=== PATIENT | female | born 1955 | race Caucasian/White ===

== ENCOUNTER → 2016-09-29 | Outpatient (CLI) | payer BC, OTHER ==
[~2016-09-29] MED LIST: ACET-1256 PO; ALBINS INH; ALBU18002 INH; ATOR-24 PO; CLCC1250 PO; CLR10 PO; CSPOPS OPL; DXY50 PO; ERGO1CAP35 PO; MULT-506 PO; TELM80TA PO; TRVOPS OPL
== END | disposition home or self-care (01) ==
LOC: C.PAPS 14:52
PROVIDERS: ATTEND Obstetrics & Gynecology
DX: Z01.419 Encounter for gynecological examination (general) (routine) without abnormal findings (principal)

== ENCOUNTER → 2017-02-01 | Outpatient (CLI) | payer OTHER ==
[2017-02-01 13:11] LABS: ALT/SGPT 54 U/L (12-78); AST/SGOT 31 U/L (15-37); BLOOD UREA NITROGEN 27 mg/dl (7-18); BUN/CREATININE RATIO 37.5 (10-20); CARBON DIOXIDE 27 mmol/L (21-32); CHLORIDE 105 mmol/L (98-107); CHOLESTEROL 207 mg/dl (0-200); CREATININE 0.71 mg/dl (0.60-1.20); GLUCOSE 97 mg/dl (70-99); POTASSIUM 4.5 mmol/L (3.5-5.1); SODIUM 141 mmol/L (136-145); TRIGLYCERIDES 213 mg/dl (0-150); VERY LOW DENSITY LIPOPROT CALC 43 mg/dl
[2017-02-01 13:14] LABS: CALCIUM 8.9 mg/dl (8.5-10.1)
[2017-02-01 13:21] LABS: CHOLESTEROL/HDL RATIO 3.8; HDL CHOLESTEROL 55 mg/dl; LDL CHOLESTEROL CALCULATED 109 mg/dl
== END | disposition home or self-care (01) ==
LOC: C.LAB 11:38
PROVIDERS: ATTEND Internal Medicine
DX: E78.5 Hyperlipidemia, unspecified (principal); R73.9 Hyperglycemia, unspecified

== ENCOUNTER → 2017-02-17 | Outpatient (CLI) | payer OTHER ==
--- NOTE | 2017-02-17 09:33 | DIAGNOSTIC IMAGING REPORT ---
LEFT HAND 3 VIEWS CLINICAL HISTORY: Polyarthropathy. FINDINGS: 3 views of left hand are obtained. No prior studies are available for comparison at the time of dictation. The skeletal structures are well mineralized for age. No fracture is seen. There is mild degenerative narrowing at the radiocarpal articulation. Minimal osteoarthritic change is seen at the first carpometacarpal joint, the first metacarpophalangeal joint, and the distal interphalangeal joints. No erosive change is seen. The overlying soft tissues are within normal limits. IMPRESSION: 1. No acute bony amount is seen in the left hand. 2. Mild osteoarthritic changes as above. Electronically signed by: Jf Schneider M.D. 02/17/2017 9:31 AM Dictated Date/Time: 02/17/2017 9:30 AM
--- NOTE | 2017-02-17 09:38 | DIAGNOSTIC IMAGING REPORT ---
RIGHT HAND MIN 3 VIEWS ROUTINE CLINICAL HISTORY: Inflammatory polyarthropathy. COMPARISON: None FINDINGS: Alignment of the right hand is anatomic. No fracture or suspicious lesion is identified. No erosions are identified. There is mild joint space narrowing and osteophytosis of multiple interphalangeal joints within the right hand suggestive of mild osteoarthritis. Carpal bones are intact. IMPRESSION: 1. 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 2. No radiographic evidence of an erosive/inflammatory arthropathy. Electronically signed by: Jorge Tracy M.D. 02/17/2017 9:37 AM Dictated Date/Time: 02/17/2017 9:36 AM
--- NOTE | 2017-02-17 09:38 | DIAGNOSTIC IMAGING REPORT ---
RIGHT ANKLE 3 VIEWS CLINICAL HISTORY: Right ankle pain. FINDINGS: 3 views of the right ankle are obtained. No prior studies are available for comparison at the time of dictation. The skeletal structures are well mineralized. No fracture is seen. The ankle mortise is intact. Enthesophytes arises from the inferior aspect of the medial malleolus. Mild degenerative spurring is seen along the dorsal aspect of the tarsal bones. A large plantar calcaneal enthesophyte is observed. No erosive change is identified. No joint effusion is seen. Soft tissue swelling is present around the ankle. IMPRESSION: 1. Soft tissue swelling with no acute bony abnormality identified. 2. Mild degenerative change and large plantar heel spur as above. Electronically signed by: Jf Schneider M.D. 02/17/2017 9:36 AM Dictated Date/Time: 02/17/2017 9:35 AM
--- NOTE | 2017-02-17 09:41 | DIAGNOSTIC IMAGING REPORT ---
RIGHT FOOT 3 VIEWS CLINICAL HISTORY: Polyarthropathy. Right foot pain. FINDINGS: 3 views of the right foot are obtained. No prior studies are available for comparison at the time of dictation. The skeletal structures are well mineralized for age. No fracture is seen. There is minimal arthritic change at the first metatarsophalangeal joint. The joint spaces of the foot are otherwise maintained. A tiny os naviculari is incidentally noted. No erosive change is present. A large plantar calcaneal enthesophyte is observed. The overlying soft tissues are within normal limits. IMPRESSION: Mild degenerative change and plantar heel spur as above. No acute bony abnormality is seen. Electronically signed by: Jf Schneider M.D. 02/17/2017 9:39 AM Dictated Date/Time: 02/17/2017 9:38 AM
[2017-02-17 10:14] LABS: RHEUMATOID FACTOR < 10.0 U/mL (0-15); TOTAL IRON BINDING CAPACITY 158 mcg/dl (250-450)
[2017-02-22 12:22] LABS: ANTI-CENTROMERE AB <1.0 NEG AI (<1.0 NEG); ANTI-SS-A <1.0 NEG AI (<1.0 NEG); ANTI-SS-B <1.0 NEG AI (<1.0 NEG); DNA ds CRITHIDIA NEGATIVE (NEGATIVE); HLA-B27** TC 528X NEGATIVE (NEGATIVE); PARVOVIRUS IgG INDEX 5.8 (<0.9); PARVOVIRUS IgM INDEX 0.2 (<0.9); Sm Antibody <1.0 NEG AI (<1.0 NEG)
== END | disposition home or self-care (01) ==
LOC: C.RAD1850 08:34
PROVIDERS: ATTEND Internal Medicine Rheumatology
DX: M06.4 Inflammatory polyarthropathy (principal); M25.571 Pain in right ankle and joints of right foot; M79.9 Soft tissue disorder, unspecified; M77.31 Calcaneal spur, right foot

== ENCOUNTER → 2017-03-24 | Outpatient (CLI) | payer OTHER ==
[2017-04-01 15:26] LABS: O&P SOURCE OTHER-STOOL
== END | disposition home or self-care (01) ==
LOC: C.LAB 07:14
PROVIDERS: ATTEND Internal Medicine
DX: R19.7 Diarrhea, unspecified (principal)

== ENCOUNTER → 2017-05-06 | Outpatient (CLI) | payer OTHER | END | disposition home or self-care (01) | LOC: C.LABSPEC 09:14 | PROVIDERS: ATTEND Physician Assistant | DX: R19.7 Diarrhea, unspecified (principal) ==

== ENCOUNTER → 2017-05-13 | Day surgery (SDC) | payer OTHER ==
[2017-05-11 15:02] VITALS: Ht 165.1 cm; Wt 90.9 kg
[~2017-05-13] VITALS: Ht 165.1 cm; Wt 90.9 kg
[~2017-05-13] MED LIST changes: +LIDOCAINE HCL 2% 2 ML VIAL (20MG/ML) ONE; +MIDAZOLAM HCL 1 MG/ML 2ML VIAL ONE; +PROPOFOL IV EMULSION 10 MG/ML 20 ML VIAL IV ONE; +SODIUM CHLORIDE 0.9% 500ML 500 ML IV ONE
--- NOTE | 2017-05-13 12:35 | Endo History and Physical ---
History & Physical Date of Service: May 13, 2017. Chief Complaint: DIARRHEA Referring Physician: DR MARKS History of Present Illness 61 yo CF who presents for colonoscopy secondary to diarrhea. Past Surgical History Hx Cardiac Surgery: No Hx Internal Defibrillator: No Hx Pacemaker: No Hx Abdominal Surgery: No Hx of Implantable Prosthesis: No Hx Post-Op Nausea and Vomiting: No Hx Cancer Surgery: No Hx Thoracic Surgery: No Hx Orthopedic: Yes (benign tumor removed from left hand) Hx Urinary Tract Surgery: No Family History None Social History Smoking Status: Never Smoker Hx Substance Use: No Hx Alcohol Use: Yes (wine) Allergies Coded Allergies: Cat Dander (Verified Allergy, Intermediate, ITCHY EYES, RUNNY NOSE, SNEEZING, 05/13/17) Dog Dander (Verified Allergy, Intermediate, ITCHY EYES, RUNNY NOSE, SNEEZING, 05/13/17) Pollen Extract (Verified Allergy, Intermediate, ITCHY EYES, RUNNY NOSE, SNEEZING, 05/13/17) Uncoded Allergies: ALL STERIODS (Allergy, Severe, "CAUSES FLUID TO BUILD BEHIND EYES", 04/04/16 ) EYE DROPS (Allergy, Unknown, UNKNOWN, 04/04/16) EYE DROPS WERE FOR GLAUCOMA Current Medications Reported Home Medications Medications Dose Route/Sig Max Daily Dose Days Date Category Proair Respiclick (Albuterol Sulfate) 108 Mcg/Act Aer 1 Puff INH QID PRN 05/11/17 Reported Albuterol Sulfate (Albuterol Sulf) 2.5 Mg/3 Ml Nebu 1 Dose INH QID PRN 05/11/17 Reported Tylenol (Acetaminophen) 500 Mg Tab 1,000 Mg PO QID 04/04/16 Reported Claritin (Loratadine) 10 Mg Tab 10 Mg PO QAM 04/04/16 Reported Multivitamin (Multivitamins) Tab 1 Tab PO QAM 10/07/11 Reported Os-Ermias 500 * (Calcium Carbonate) 500 Mg Tab 500 Mg PO QAM 10/07/11 Reported Cosopt Oph * (Dorzolamide/Timolol) Soln 1 Drop OPL BID 10/07/11 Reported Travatan Oph Soln 0.004% * (Travoprost) 37 Drops/2.5 Ml Soln 1 Drop OPL HS 10/07/11 Reported Lipitor (Atorvastatin Calcium) 40 Mg Tab 40 Mg PO HS 10/07/11 Reported Vibramycin * (Doxycycline Hyclate) 50 Mg Cap 50 Mg PO QAM 10/07/11 Reported Vitamin D Cap (Ergocalciferol) 50,000 Interunit Cap 1 Tab PO Q 2 WEEKS 10/07/11 Reported Micardis (Telmisartan) 80 Mg Tab 80 Mg PO QAM 10/07/11 Reported Vital Signs Weight (Kilograms): 90.91 Height (Feet): 5 Height (Inches): 5 Physical Exam General Appearance: WD/WN, no apparent distress Respiratory/Chest: Auscultation: breath sounds normal Cardiovascular: Heart Auscultation: RRR Abdomen: Bowel Sounds: normal Inspection & Palpation: soft, non-distended, no tenderness, guarding & rebound Assessment and Plan Assessment: 61 yo CF who presents for colonoscopy secondary to diarrhea. Plan: Proceed with colonoscopy.
--- NOTE | 2017-05-13 13:17 | Discharge Instructions ---
Endoscopy Patient Instructions Date / Procedure(s) Performed May 13, 2017. Colonoscopy Allergy Information Coded Allergies: Cat Dander (Verified Allergy, Intermediate, ITCHY EYES, RUNNY NOSE, SNEEZING, 05/13/17) Dog Dander (Verified Allergy, Intermediate, ITCHY EYES, RUNNY NOSE, SNEEZING, 05/13/17) Pollen Extract (Verified Allergy, Intermediate, ITCHY EYES, RUNNY NOSE, SNEEZING, 05/13/17) Uncoded Allergies: ALL STERIODS (Allergy, Severe, "CAUSES FLUID TO BUILD BEHIND EYES", 04/04/16 ) EYE DROPS (Allergy, Unknown, UNKNOWN, 04/04/16) EYE DROPS WERE FOR GLAUCOMA Discharge Date / Findings May 13, 2017. Diverticulosis Internal hemorrhoids Random colon biopsies Stool studies collected Medication Instructions OK to resume all medications today as prescribed Reported Home Medications Medications Dose Route/Sig Max Daily Dose Days Date Category Proair Respiclick (Albuterol Sulfate) 108 Mcg/Act Aer 1 Puff INH QID PRN 05/11/17 Reported Albuterol Sulfate (Albuterol Sulf) 2.5 Mg/3 Ml Nebu 1 Dose INH QID PRN 05/11/17 Reported Tylenol (Acetaminophen) 500 Mg Tab 1,000 Mg PO QID 04/04/16 Reported Claritin (Loratadine) 10 Mg Tab 10 Mg PO QAM 04/04/16 Reported Multivitamin (Multivitamins) Tab 1 Tab PO QAM 10/07/11 Reported Os-Ermias 500 * (Calcium Carbonate) 500 Mg Tab 500 Mg PO QAM 10/07/11 Reported Cosopt Oph * (Dorzolamide/Timolol) Soln 1 Drop OPL BID 10/07/11 Reported Travatan Oph Soln 0.004% * (Travoprost) 37 Drops/2.5 Ml Soln 1 Drop OPL HS 10/07/11 Reported Lipitor (Atorvastatin Calcium) 40 Mg Tab 40 Mg PO HS 10/07/11 Reported Vibramycin * (Doxycycline Hyclate) 50 Mg Cap 50 Mg PO QAM 10/07/11 Reported Vitamin D Cap (Ergocalciferol) 50,000 Interunit Cap 1 Tab PO Q 2 WEEKS 10/07/11 Reported Micardis (Telmisartan) 80 Mg Tab 80 Mg PO QAM 10/07/11 Reported Provider Instructions Activity Restrictions - No exercising or heavy lifting for 24 hours. - Do not drink alcohol the day of the procedure. - Do not drive a car or operate machinery until the day after the procedure. - Do not make any important decisions or sign important papers in 24 hours after the procedure. Following Day: - Return to full activity which may include returning to work/school. Diet Start your diet with liquids and light foods (jello, soup, juice, toast). Then eat your usual diet if not nauseated. Treatment For Common After Affects For mild abdominal pain, bloating, or excessive gas: - Rest - Eat lightly - Lie on right side Follow-Up Information Follow-up with DR MARKS as scheduled Anesthesia Information What You Should Know You have had a procedure that required some medicine to reduce anxiety and discomfort. This treatment is called moderate sedation. After receiving the treatment, you may be sleepy, but you will be able to breathe on your own. The effects of the treatment may last for several hours. Follow these instructions along with Activity/Diet recommendations noted above: * Do NOT do anything where dizziness or clumsiness would be dangerous. * Rest quietly at home today, then you can be up and about tomorrow. * Have a responsible person stay with you the rest of today. * You may have had an I.V. today. If so, you may take the dressing off later today. Recommendations Call your doctor if: * Trouble breathing * Continuous vomiting for more than 24 hours * Temperature above 101 degrees * Severe abdominal pain or bloating * Pain not relieved by pain medicine ordered * There is increased drainage or redness from any incision * A large amount of rectal bleeding greater than 2-3 tablespoons. (If you had a polyp/s removed or have hemorrhoids, a small amount of blood - from the rectum is to be expected.) * You have any unanswered questions or concerns. IN THE EVENT OF A SERIOUS EMERGENCY, GO TO THE NEAREST EMERGENCY ROOM Your discharge instructions were prepared by provider Jono Ventura. Patient Instructions Signature Page Malathi Neely Patient (or Guardian) Signature/Date: I have read and understand the instructions given to me by my caregivers. Caregiver/RN/Doctor Signature/Date: The above-named patient and/or guardian has received patient instructions on this date. + Original Patient Signature Page (only) stays with chart. Please make copy for patient.
--- NOTE | 2017-05-13 13:26 | GI REPORT ---
Procedure Date: 05/13/2017 12:30 PM THIS REPORT HAS BEEN AMENDED Addendum Number: 1 Addendum Date: 05/13/2017 5:04:34 PM Random colon biopsies and stool studies were collected during this exam. Await pathology results and stool studies. Procedure: Colonoscopy Indications: Chronic diarrhea Medicines: Monitored Anesthesia Care Complications: No immediate complications. Estimated Blood Loss: Estimated blood loss: none. Procedure: Pre-Anesthesia Assessment: - Prior to the procedure, a History and Physical was performed, and patient medications and allergies were reviewed. The patient's tolerance of previous anesthesia was also reviewed. The risks and benefits of the procedure and the sedation options and risks were discussed with the patient. All questions were answered, and informed consent was obtained. Prior Anticoagulants: The patient has taken no previous anticoagulant or antiplatelet agents. ASA Grade Assessment: II - A patient with mild systemic disease. After reviewing the risks and benefits, the patient was deemed in satisfactory condition to undergo the procedure. After I obtained informed consent, the scope was passed under direct vision. Throughout the procedure, the patient's blood pressure, pulse, and oxygen saturations were monitored continuously. The Scope was introduced through the anus and advanced to the terminal ileum. The colonoscopy was performed without difficulty. The patient tolerated the procedure well. The quality of the bowel preparation was good. The terminal ileum, the appendiceal orifice and the rectum were photographed. Findings: Multiple small-mouthed diverticula were found in the sigmoid colon. Non-bleeding internal hemorrhoids were found during retroflexion. The hemorrhoids were small. Impression: - Diverticulosis in the sigmoid colon. - Non-bleeding internal hemorrhoids. - No specimens collected. Recommendation: - Resume previous diet. - Continue present medications. - Repeat colonoscopy for surveillance based on pathology results. - Return to primary care physician as previously scheduled. Jono Mireya Ventura, 05/13/2017 1:26:10 PM This report has been signed electronically. Note Initiated On: 05/13/2017 12:30 PM I attest to the content of the Intraoperative Record and orders documented therein, exceptions below Jono MckoyStephanie Ventura, DO 05/13/2017 5:05:17 PM This report has been signed electronically.
--- NOTE | 2017-05-13 13:36 | Anesthesiology Progress Note ---
Anesthesia Post Op Note Date & Time May 13, 2017 at 13:36 Vital Signs Pain Intensity: 0 Vital Signs Past 12 Hours Date Time Temp Pulse Resp B/P (MAP) Pulse Ox O2 Delivery O2 Flow Rate FiO2 05/13/17 13:31 79 16 145/80 (101) 98 Room Air 05/13/17 13:16 93 16 121/64 (83) 97 Room Air 05/13/17 12:35 37.0 87 18 139/82 (101) 95 Room Air Notes Mental Status: alert / awake / arousable, participated in evaluation Pt Amnestic to Procedure: Yes Nausea / Vomiting: adequately controlled Pain: adequately controlled Airway Patency, RR, SpO2: stable & adequate BP & HR: stable & adequate Hydration State: stable & adequate Anesthetic Complications: no major complications apparent
[2017-05-13 13:46] VITALS: BP 137/93; PULSE 72; O2SAT 99
== END | disposition home or self-care (01) ==
LOC: C.GI 12:01
PROVIDERS: ATTEND Internal Medicine
DX: R19.7 Diarrhea, unspecified (principal); Z79.899 Other long term (current) drug therapy; K57.30 Diverticulosis of large intestine without perforation or abscess without bleeding; K64.8 Other hemorrhoids

== ENCOUNTER → 2017-08-26 | Outpatient (CLI) | payer OTHER ==
[~2017-08-26] MED LIST changes: -LIDOCAINE HCL 2% 2 ML VIAL (20MG/ML) ONE; -MIDAZOLAM HCL 1 MG/ML 2ML VIAL ONE; -PROPOFOL IV EMULSION 10 MG/ML 20 ML VIAL IV ONE; -SODIUM CHLORIDE 0.9% 500ML 500 ML IV ONE
[2017-08-26 14:23] LABS: BASO % 0.2 %; BASO ABS # 0.02 K/uL (0-0.2); EOS % 0.8 %; EOS ABS # 0.07 K/uL (0-0.5); HEMATOCRIT 39.2 % (37-47); IG# 0.01 K/uL (0.00-0.02); LYMPH % 13.4 %; LYMPH ABS # 1.19 K/uL (1.2-3.4); MEAN CELL VOLUME 106.5 fL (80-100); MEAN CORPUSCULAR HEMOGLOBIN 35.3 pg (25-34); MEAN CORPUSCULAR HGB CONC 33.2 g/dl (32-36); MEAN PLATELET VOLUME 9.7 fL (7.4-10.4); MONO ABS # 0.71 K/uL (0.11-0.59); NEUT % 77.5 %; NEUT ABS # 6.85 K/uL (1.4-6.5); PLATELET COUNT 231 K/uL (130-400); RED CELL DISTRIBUTION WIDTH CV 12.9 % (11.5-14.5); RED CELL DISTRIBUTION WIDTH SD 50.4 fL (36.4-46.3); WHITE BLOOD COUNT 8.85 K/uL (4.8-10.8)
[2017-08-26 18:59] LABS: AST/SGOT 19 U/L (15-37); BLOOD UREA NITROGEN 18 mg/dl (7-18); CALCIUM 9.2 mg/dl (8.5-10.1); CARBON DIOXIDE 28 mmol/L (21-32); CREATININE 0.66 mg/dl (0.60-1.20); GLUCOSE 91 mg/dl (70-99); POTASSIUM 4.3 mmol/L (3.5-5.1); SODIUM 134 mmol/L (136-145); TOTAL PROTEIN 7.6 gm/dl (6.4-8.2)
[2017-08-26 19:13] LABS: ALKALINE PHOSPHATASE 116 U/L (45-117); ALT/SGPT 46 U/L (12-78); CHOLESTEROL 208 mg/dl (0-200); LDL CHOLESTEROL CALCULATED 119 mg/dl
== END | disposition home or self-care (01) ==
LOC: C.LABBC 12:05
PROVIDERS: ATTEND Family Medicine Adult Medicine
DX: E78.5 Hyperlipidemia, unspecified (principal); E55.9 Vitamin D deficiency, unspecified; R10.9 Unspecified abdominal pain

== ENCOUNTER → 2017-08-27 | Outpatient (CLI) | payer OTHER ==
--- NOTE | 2017-08-27 14:37 | MAMMOGRAPHY REPORT ---
BILATERAL DIGITAL SCREENING MAMMOGRAM TOMOSYNTHESIS WITH CAD: 08/27/2017 CLINICAL HISTORY: Routine screening. Patient has no complaints. TECHNIQUE: Breast tomosynthesis in addition to standard 2D mammography was performed. Current study was also evaluated with a Computer Aided Detection (CAD) system. COMPARISON: Comparison is made to exams dated: 08/14/2016 mammogram, 08/13/2015 mammogram, 4 mammogram, 08/06/2014 mammogram, 08/03/2013 mammogram, and 08/01/2012 mammogram - [facility]. BREAST COMPOSITION: The tissue of both breasts is heterogeneously dense, which may obscure small mas ses. FINDINGS: No suspicious masses, calcifications, or areas of architectural distortion are noted in ei ther breast. There has been no significant interval change compared to prior exams. Small cluster of benign-appearing calcifications in the left upper outer quadrant is stable. Bilateral asymmetries a re stable. IMPRESSION: ACR BI-RADS CATEGORY 2: BENIGN There is no mammographic evidence of malignancy. A 1 year screening mammogram is recommended. The pa tient will receive written notification of the results. Approximately 10% of breast cancers are not detected with mammography. A negative mammographic report should not delay biopsy if a clinically suggestive mass is present. Comfort Biggs M.D. ah/:08/27/2017 07:52:18 Powder Room Attendant: Kiara SARGENT(Artemio)(M), [facility] letter sent: Normal 1/2 BI-RADS Code: ACR BI-RADS Category 2: Benign
== END | disposition home or self-care (01) ==
LOC: C.MAMM 07:31
PROVIDERS: ATTEND Obstetrics & Gynecology
DX: Z12.31 Encounter for screening mammogram for malignant neoplasm of breast (principal)

== ENCOUNTER → 2017-08-31 | Outpatient (CLI) | payer OTHER ==
--- NOTE | 2017-08-31 08:24 | DIAGNOSTIC IMAGING REPORT ---
ABDOMINAL ULTRASOUND, RIGHT UPPER QUADRANT HISTORY: Elevated bilirubin.. COMPARISON: None. FINDINGS: Pancreas: The pancreatic tail is obscured by overlying bowel gas. The remaining portions of the pancreas are within normal limits. Liver: The liver is echogenic consistent with fatty change. There are 2 small hypoechoic lesion seen within the liver with the largest measuring 1.4 cm. These favor cysts. Gallbladder: No gallbladder wall thickening. No gallstones. CBD: 5 mm. Right kidney: No hydronephrosis. IMPRESSION: 1. Mild hepatic steatosis. 2. Probable small hepatic cysts. 3. Normal gallbladder. No gallstones. Electronically signed by: Kulwinder Cortez M.D. 08/31/2017 8:23 AM Dictated Date/Time: 08/31/2017 8:15 AM
== END | disposition home or self-care (01) ==
LOC: C.ULTR 07:32
PROVIDERS: ATTEND Family Medicine Adult Medicine
DX: R17 Unspecified jaundice (principal)